=== PATIENT | male | born 1975 | race African-American/Black ===

== ENCOUNTER 2025-03-29 00:30 | Emergency (ER) | payer MEDICARE, MEDICAID ==
[~2025-03-29] VITALS: Ht 185.4 cm; Wt 60.5 kg
[2025-03-29 00:45] VITALS: TEMP 98.005280
[2025-03-29] MEDS: SODIUM CHLORIDE 0.9% 1,000 ML IV ONE (02:32)
[2025-03-29 02:33] LABS: CALCIUM, TOTAL 8.4 mg/dL (8.8-10.5); CREATININE 0.72 mg/dL (0.60-1.30); GLOMERULAR FILTR. RATE CALC > 60 mL/min (>60); GLUCOSE,RANDOM 90 mg/dL (70-110); SODIUM SERUM 134 mmol/L (136-145); UREA NITROGEN, BLOOD 7 mg/dL (7-18)
[2025-03-29 02:37] LABS: PLATELET COUNT (AUTO) 327 K/uL (150-450); RED BLOOD CELL COUNT(AUTO) 4.60 MIL/uL (4.50-5.90); RED CELL DISTRIBUTION WIDTH 14.9 % (11.5-14.5); WHITE BLOOD COUNT (AUTO) 10.7 K/uL (4.5-11.0)
[2025-03-29 07:09] VITALS: BP 100/64; PULSE 87; RESP 17; O2SAT 99
== END 2025-03-29 07:21 | disposition home or self-care (01) ==
LOC: EMS 01:03
DX: S20.211A Contusion of right front wall of thorax, initial encounter (principal); M25.551 Pain in right hip; M25.561 Pain in right knee; F20.9 Schizophrenia, unspecified; F17.210 Nicotine dependence, cigarettes, uncomplicated; K21.9 Gastro-esophageal reflux disease without esophagitis; Z86.718 Personal history of other venous thrombosis and embolism; Y04.0XXA Assault by unarmed brawl or fight, initial encounter; Y93.89 Activity, other specified; Y92.89 Other specified places as the place of occurrence of the external cause; Y99.8 Other external cause status
CPT/HCPCS: 99284; 96360; 96361; 80048; 85025; 36415; 71101; 73521; 73562; J7030

== ENCOUNTER 2025-06-03 21:10 | Emergency (ER) | payer MEDICARE, MEDICAID ==
[~2025-06-03] VITALS: Ht 185.4 cm; Wt 54.5 kg
[2025-06-03 21:28] VITALS: BP 100/70; PULSE 75; RESP 16; TEMP 98.3; O2SAT 98
[2025-06-03 22:24] LABS: CALCIUM, TOTAL 8.6 mg/dL (8.8-10.5); CREATININE 0.74 mg/dL (0.60-1.30); GLOMERULAR FILTR. RATE CALC > 60 mL/min (>60); GLUCOSE,RANDOM 95 mg/dL (70-110); SODIUM SERUM 132 mmol/L (136-145); UREA NITROGEN, BLOOD 8 mg/dL (7-18)
[2025-06-03 22:29] LABS: PH,URINE DRUG SCREEN 6.0 (5.0-8.0)
[2025-06-03 22:35] LABS: PLATELET COUNT (AUTO) 379 K/uL (150-450); RED BLOOD CELL COUNT(AUTO) 4.80 MIL/uL (4.50-5.90); RED CELL DISTRIBUTION WIDTH 13.9 % (11.5-14.5); WHITE BLOOD COUNT (AUTO) 6.1 K/uL (4.5-11.0)
[2025-06-03 22:35] LABS: ALCOHOL, URINE DRUG SCREEN NEGATIVE (NEGATIVE); AMPHET/METH SCREEN,URINE NEGATIVE (NEGATIVE); BARBITURATE SCREEN, URINE NEGATIVE (NEGATIVE); CANNABINOID SCREEN,URINE NEGATIVE (NEGATIVE); COCAINE SCREEN,URINE NEGATIVE (NEGATIVE); METHADONE SCREEN, URINE NEGATIVE (NEGATIVE)
== END 2025-06-04 02:51 | disposition home or self-care (01) ==
LOC: EMS 21:11
DX: R45.1 Restlessness and agitation (principal); K21.9 Gastro-esophageal reflux disease without esophagitis; F32.A Depression, unspecified; F20.9 Schizophrenia, unspecified; F17.210 Nicotine dependence, cigarettes, uncomplicated; Z86.718 Personal history of other venous thrombosis and embolism
CPT/HCPCS: 99283; 80048; 85025; 36415; 80307; G0480